=== PATIENT | female | born 1965 | race Caucasian/White ===

== ENCOUNTER → 2024-12-24 07:05 | Outpatient (REF) | payer BC, SELFPAY | LOC: HWRAD 07:05 | PROVIDERS: ATTENDING PHYSICIAN Family Medicine | DX: R10.11 Right upper quadrant pain (principal) | CPT/HCPCS: 76700 ==

== ENCOUNTER → 2025-02-03 15:39 | Outpatient (REF) | payer BC, SELFPAY | LOC: RAD 15:39 | PROVIDERS: ATTENDING PHYSICIAN Internal Medicine Rheumatology; FAMILY PHYSICIAN Family Medicine | DX: M26.622 Arthralgia of left temporomandibular joint (principal); M79.671 Pain in right foot | CPT/HCPCS: 70330; 73630 ==

== ENCOUNTER → 2025-03-12 15:00 | Outpatient (REF) | payer BC, SELFPAY | LOC: WDC 15:00 | PROVIDERS: ATTENDING PHYSICIAN Family Medicine | DX: Z12.31 Encounter for screening mammogram for malignant neoplasm of breast (principal) | CPT/HCPCS: 77063; 77067 ==

== ENCOUNTER → 2025-05-26 14:59 | Outpatient (REF) | payer BC, SELFPAY | LOC: REG 14:59 | PROVIDERS: ATTENDING PHYSICIAN Student in an Organized Health Care Education/Training Program | DX: M25.471 Effusion, right ankle (principal) | CPT/HCPCS: 73610; 73630 ==

== ENCOUNTER → 2025-05-28 20:20 | Outpatient (REF) | payer BC, SELFPAY | LOC: MRI 3T 20:20 | PROVIDERS: ATTENDING PHYSICIAN Internal Medicine Rheumatology; FAMILY PHYSICIAN Family Medicine | DX: R68.84 Jaw pain (principal) | CPT/HCPCS: 70336 ==